=== PATIENT | male | born 1955 | race Caucasian/White ===

== ENCOUNTER 2017-11-25 11:48 | Emergency (ER) | payer MEDICARE, SELFPAY ==
[2017-11-25] MEDS: IPRATRPIUM/ALBUTEROL 0.5/2.5MG 3 ML NEBU. NEB ×2 (12:32)
[2017-11-25 12:38] LABS: ADD MAN DIFF? NO
[2017-11-25 12:41] LABS: BASO % 0 % (0-3); EOS # 0.2 x10^3/uL (0.0-0.7); EOS % 2 % (0-3); HEMATOCRIT 40.8 % (39.0-53.0); LYMPH # 1.6 x10^3/uL (1.0-4.8); LYMPH % 18 % (24-48); MEAN CORPUSCULAR HEMOGLOBIN 29 pg (25-35); MEAN CORPUSCULAR HGB CONC 34 g/dL (31-37); MEAN CORPUSCULAR VOLUME 85 fL (79-100); MONO # 0.7 x10^3/uL (0.0-1.1); MONO % 7 % (0-9); NEUT # 6.4 x10^3uL (1.8-7.7); NEUT % 72 % (31-73); PLATELET COUNT 128 x10^3/uL (140-400); RED BLOOD COUNT 4.78 x10^6/uL (4.30-5.70); RED CELL DISTRIBUTION WIDTH 14.4 % (11.5-14.5); WHITE BLOOD COUNT 8.8 x10^3/uL (4.0-11.0)
[2017-11-25 12:54] LABS: ANION GAP 9 (6-14); BLOOD UREA NITROGEN 14 mg/dL (8-26); CALCIUM 8.6 mg/dL (8.5-10.1); CARBON DIOXIDE 28 mmol/L (21-32); CHLORIDE 99 mmol/L (98-107); CREATININE 0.8 mg/dL (0.7-1.3); GFR 98.3; GLUCOSE 415 mg/dL (70-99); POTASSIUM 4.1 mmol/L (3.5-5.1); SODIUM 136 mmol/L (136-145)
[2017-11-25 13:00] LABS: ALBUMIN 2.8 g/dL (3.4-5.0); ALK PHOS 85 U/L (46-116); ALT (SGPT) 15 U/L (16-63); AST (SGOT) 13 U/L (15-37); DIRECT BILIRUBIN 0.1 mg/dL (0.0-0.2); TOTAL BILIRUBIN 0.8 mg/dL (0.2-1.0); TOTAL PROTEIN 7.2 g/dL (6.4-8.2)
[2017-11-25 13:03] LABS: TROPONINI < 0.017 ng/mL (0.000-0.055)
[2017-11-25 13:07] LABS: THYROID STIM HORMONE (TSH) 1.066 uIU/mL (0.358-3.74)
[2017-11-25 13:14] LABS: NT-PRO BNP 410 pg/mL (0-124)
[2017-11-25 13:14] LABS: CREATINE KINASE 73 U/L (39-308)
[2017-11-25 13:15] LABS: CKMB MASS < 0.5 ng/mL (0.0-3.6)
[2017-11-25] MEDS: predniSONE 10 MG TABLET PO ×2 (14:15)
== END 2017-11-25 15:10 | disposition home or self-care (01) ==
LOC: ER 11:48
DX: J18.9 Pneumonia, unspecified organism (principal)
CPT/HCPCS: 36415; 71046; 80048; 80076; 82553; 83735; 83880; 84443; 84484; 85025; 93005; 94640; 99285-25; J7620

== ENCOUNTER 2018-06-26 11:32 | Emergency (ER) | payer MEDICARE ==
[~2018-06-26] VITALS: Ht 172.7 cm; Wt 81.6 kg
[~2018-06-26 11:32] MED LIST: INSU100I13 SQ; INSU100V SQ; LEVO500T59 PO; PRED20TA PO; VENTOLIN HFA18 GM INH
--- NOTE | 2018-06-26 13:04 | PHYS DOC ---
Past Medical History Past Medical History: Diabetes-Type II Past Surgical History: Knee Replacement, Other Additional Past Surgical Histo: right rotator, back surgery, left knee replacement Alcohol Use: None Drug Use: None Adult General Chief Complaint Chief Complaint: FINGER INJURY HPI HPI 62-year-old male presents for evaluation of redness, swelling and infection around the nail of the left middle finger. He reports symptoms have been worsening for the last 3 days. Patient states he bites and chews his nails. He recently moved to this area from [place] so he can help his family. He has not yet set up primary care doctors in this area. He denies fevers, nausea or vomiting. Review of Systems Review of Systems Constitutional: Denies fever or chills [] Respiratory: Denies cough or shortness of breath [] Cardiovascular: No additional information not addressed in HPI [] GI: Denies abdominal pain, nausea, vomiting, bloody stools or diarrhea [] Musculoskeletal: Denies back pain or joint pain [] Endocrine: Denies polyuria or polydipsia [] All other systems were reviewed and found to be within normal limits, except as documented in this note. Current Medications Current Medications Current Medications Medications (Trade) Dose Ordered Sig/Kalyan Start Time Stop Time Status Last Admin Dose Admin Bupivacaine HCl (Marcaine 0.5%) 50 ml 1X ONCE 06/26/18 13:15 06/26/18 13:16 DC 06/26/18 13:15 50 ML Ceftriaxone Sodium (Rocephin Im) 1 gm 1X ONCE 06/26/18 14:00 06/26/18 14:01 DC 06/26/18 13:53 1 GM Diphtheria/ Tetanus/Acell Pertussis (Boostrix) 0.5 ml ONCE ONCE 06/26/18 13:15 06/26/18 13:16 DC 06/26/18 13:53 0.5 ML Allergies Allergies Allergies Coded Allergies Type Severity Reaction Last Updated Verified No Known Drug Allergies 11/25/17 No Physical Exam Physical Exam Constitutional: Well developed, well nourished, no acute distress, non-toxic appearance. [] Skin: Left middle finger paronychia Extremities: Left middle finger paronychia, swelling, decreased range of motion , no symmetrical swelling, finger is not held in flexed position, no evidence of tenosynovitis Neurologic: Alert and oriented X 3, normal motor function, normal sensory function, no focal deficits noted. [] Psychologic: Affect normal, judgement normal, mood normal. [] Current Patient Data Vital Signs Vital Signs Date Time Temp Pulse Resp B/P (MAP) Pulse Ox O2 Delivery O2 Flow Rate FiO2 06/26/18 13:05 98.5 73 16 178/82 (114) 98 Room Air 98.5 EKG EKG [] Radiology/Procedures Radiology/Procedures Paronychia to left middle finger, digital block performed with bupivacaine 0.5% 2 mls. Betadine used to cleanse the finger, #11 blade used for incision, large amount of purulent and bloody drainage. Finger was bandaged. Course & Med Decision Making Course & Med Decision Making Strict return precautions discussed with patient. Have also provided him a IM Rocephin 1 g in the emergency room today. Prescription for Bactrim. Recommend warm water soaks to allow for continued drainage. Discussed importance of follow -up with primary care provider, if symptoms worsen he is to return to the emergency room immediately for another evaluation. He verbalizes understanding of these discharge instructions. Tetanus was updated today. Ibuprofen or Tylenol for discomfort.] Dragon Disclaimer Dragon Disclaimer This electronic medical record was generated, in whole or in part, using a voice recognition dictation system. Departure Departure Impression: Primary Impression: Paronychia Disposition: 01 HOME, SELF-CARE Condition: STABLE Referrals: NO PCP (PCP) Patient Instructions: Paronychia Scripts Sulfamethoxazole/Trimethoprim (BACTRIM DS TABLET) 1 Each Tablet 1 TAB PO BID, #20 TAB 0 Refills Prov: SHER SHEA APRN 06/26/18 SHER SHEA APRN Jun 26, 2018 13:04
[2018-06-26 13:05] VITALS: BP 178/82
[2018-06-26] MEDS ORDERED: DIPHTH,PERTUSS(ACELL),TET TOX 0.5 ML DISP.SYRIN. VAX IM ONE (13:15)
[2018-06-26] MEDS ORDERED: BUPIVACAINE 0.5% 50 ML VIAL. INJ ONE (13:15)
[2018-06-26] MEDS ORDERED: cefTRIAXone IM 1 GM VIAL IM ONE (14:00)
[2018-06-26] MEDS ORDERED: SULF1TAB24 PO (14:03)
== END 2018-06-26 14:29 | disposition home or self-care (01) ==
LOC: ER 11:32
DX: L03.012 Cellulitis of left finger (principal); E11.9 Type 2 diabetes mellitus without complications
CPT/HCPCS: 10060; 90471; 90715; 96372; 99284; J0696; J3490; 10061